=== PATIENT | male | born 1995 | race Caucasian/White ===

== ENCOUNTER 2022-04-01 15:39 | Outpatient (CLI) | payer MEDICARE, MEDICAID, SELFPAY | END 2022-04-01 15:40 | disposition home or self-care (01) | LOC: AMB 04-04 15:28 | PROVIDERS: PCP Physician Assistant Medical; Visit Provider Family Medicine | DX: Z71.51 Drug abuse counseling and surveillance of drug abuser (principal) | CPT/HCPCS: A0425; A0429 ==

== ENCOUNTER 2022-04-01 15:57 | Emergency (ER) | payer MEDICARE, MEDICAID, SELFPAY ==
[2022-04-01 16:03] VITALS: BP 159/106; PULSE 110; TEMP 36.6; O2SAT 99; BMI 36.2
--- NOTE | 2022-04-01 16:37 | ED_ITS ---
HPI - General Adult General Chief complaint: Psychiatric Problem/Disorder Stated complaint: Mental Health Time Seen by Provider: 04/01/22 16:18 Source: patient and other (Alla, Victoria via phone.) Mode of arrival: EMS Limitations: no limitations History of Present Illness HPI narrative: 27-year-old male with a history of guardian for prior substance abuse and mental health issues presents to the emergency department by local law enforcement. Guardilei called because she has concerns regarding his behavior. Patient has a longstanding history of drug and alcohol use. He has been refusing to attend medical appointments but he did attend a virtual psychiatry visit yesterday. It sounds as though they are starting on a treatment plan and the psychiatrist did not see any reason to medically hold the patient or exhibit any concerns regarding his safety at that time. Patient did ask the psychiatrist for Adderall as he is hoping to return to school which the provider declined at this time. Urine close family members have been reporting that he has shown some signs of erratic behavior. Mother has significant mental health issues as well. It sounds as though Harley was kicked out of his mother's apartment recently due to threatening a neighbor over money and drugs. The patient receives disability. He tells me that he does help support he and his mother by contributing to rent and living expenses. He also would like to look for a job. Alla is concerned that he showing self-destructive behavior by continuing to use kratom which is apparently an herbal supplement that he buys at a local tobacco shop. It is not illegal. His family confirms that he will take large amounts of these at a time and does drink alcohol. Patient states that he has not had any alcohol for a week. Family is worried that he is exhibiting self- destructive behavior though he is not threatening suicide, bodily harm to others or made threats to them in any way. Alla reports that she had set him up with an appointment for housing through the [facility] in the last few days which he refused to attend. Alla had a virtual visit with him today and states that he looked like he was on showered and on hygienic. Patient states the me that he has been eating and drinking normally, he socializes with family and friends. He states that he has a grown adult and is allowed to take herbal supplements if he sees fit. He does not think that he needs to be hospitalized. He denies any hallucinations, depression or anxiety. He states as a court appointment next month to readdress his guardianship as he no longer thinks that this is necessary for him. He does not make any threats to our staff. He did initially refuse to provide a drug or urine sample but when I explained that if this is truly negative as he assures me that it would be that this could help his case in the courts and contribute to his defense that he does not need to be medically held. Prior ED visits notable for drug and alcohol use. Long-term with history of ADHD and mental health issues. Admits to use of crater item and occasional alcohol, denies any other illicit drugs. ROS is notable for no medical complaints times 12 systems. Related Data Home Medications Medication Instructions Recorded Confirmed hydroxyzine HCl 25 mg tablet mg 04/01/22 hydroxyzine HCl 50 mg tablet mg 04/01/22 olanzapine 20 mg tablet mg 04/01/22 Allergies Allergy/AdvReac Type Severity Reaction Status Date / Time No Known Drug Allergies Allergy Verified 04/01/22 16:03 PFSH PFS Social History Smoking Status: Current every day smoker How often do you have a drink containing alcohol: monthly or less AUDIT-C Alcohol total score: 1 Non-prescribed substance use: other Non-prescribed substance use details: Kratom Exam Const: Vital Signs, click to edit/add: Vital Signs - 24 hr 04/01/22 16:03 Temperature 97.8 F Pulse Rate [Pulse Oximeter] 110 H Blood Pressure [Ri ght Upper Arm] 159/106 H Pulse Oximetry 99 Oxygen Delivery Me thod Room Air Common normals: no apparent distress and alert Orientation/consciousness: Yes awake Other: He is a little irritable but will answer my questions and follow commands and participate in exam without arguing. He is able to reason and state his case as to his lifestyle. No signs of delusions, hallucinations, aggressive or combative behavior. He is a bit disheveled but not out of the realm of typical of an emergency department patient that was not aware they were coming to the doctor. HENMT: Common normals: normocephalic and head/scalp atraumatic (No signs of recent injury) Head and scalp: normocephalic and atraumatic (No signs of recent injury) Face and sinus: normal facial exam Mouth: oral and palatal mucosa normal Throat: posterior oropharynx normal Eye: Common normals: PERRL, EOMs intact bilaterally and conjunctivae normal Conjunctiva: conjunctiva(e) normal Pupil: PERRL Neck & C-Spine: Common normals: full ROM and no lymphadenopathy Resp: Common normals: normal respiratory effort and clear to auscultation bilaterally Effort & inspection: able to speak in complete sentences Auscultation: clear to auscultation bilaterally Cardio: Common normals: regular rate, regular rhythm, S1 normal heart sound, S2 normal heart sound, no murmurs and peripheral pulses 2+ throughout Rate: regular rate Rhythm: regular rhythm Heart sounds: S1 normal and S2 normal Peripheral pulses: pulses 2+ throughout GI: Common normals: Normal to inspection, nondistended, normoactive bowel sounds present, soft to palpation, non-tender and no hepatosplenomegaly Palpation: soft and no hepatosplenomegaly Back & Pelvis: Common normals: thoracic and lumbar spine normal to inspection Extremity: Common normals: normal to inspection and normal capillary refill Other: No track santillan or signs of IV drug use. No bruising or signs of trauma. Neuro: Sensorium/orientation: awake and alert Speech: speech normal Motor exam: no tremor noted and no movement abnormalities noted Psych: Other: Mildly irritable but reasonable. Judgment insight are fair. Thought process is logical, able to reason with me. No psychosis, no threats. Appropriate behavior. Skin: Common normals: no rashes or lesions noted General skin exam: no rashes or lesions noted Course Vital Signs Vital signs: Initial Vital Signs Temperature 97.8 F 04/01/22 16:03 Temperature Source Temporal Artery Scan 04/01/22 16:03 Pulse Rate 110 H 04/01/22 16:03 Blood Pressure 159/106 H 04/01/22 16:03 Blood Pressure Mean 123 04/01/22 16:03 Blood Pressure Position Sitting 04/01/22 16:03 Pulse Oximetry 99 04/01/22 16:03 Oxygen Delivery Method 04/01/22 16:03 Vital Signs Temperature 97.8 F 04/01/22 16:03 Pulse Rate 110 H 04/01/22 16:03 Blood Pressure 159/106 H 04/01/22 16:03 Pulse Oximetry 99 04/01/22 16:03 Oxygen Delivery Method 04/01/22 16:03 Temperature 97.8 F 04/01/22 16:03 Pulse Rate 110 H 04/01/22 16:03 Blood Pressure 159/106 H 04/01/22 16:03 Pulse Oximetry 99 04/01/22 16:03 Oxygen Delivery Method 04/01/22 16:03 Medical Decision Making MDM Narrative Medical decision making narrative: Patient initially declined labs but was agreeable after discussion. Negative alcohol level noted. Urine drug screen notably positive for amphetamines but no other substances. Remainder of labs show that he is not dehydrated, rather he is well hydrated with normal electrolytes, no anemia or signs of acute illness. However he is caring for his body, it is within the realm of normal. I will discuss the herbal supplements and drug use with him but I do not have any criteria to hold this patient in the hospital and he will be discharged. I let his guardian know that that was the expected outcome in our conversation and I let her know that we would only call her back if this were not the plan that we would proceed with. There is no need to call her back and he will be released. I relayed these findings to patient and he was calm and cooperative and respectful. We have not had any issues with his interactions with our staff today. Lab Data Labs: Lab Results 04/01/22 04/01/22 04/01/22 Range/Units 16:45 16:45 16:48 WBC 9.54 (4.50-11.00) K/uL RBC 5.37 (4.30-5.90) m/uL Hgb 16.0 (13.5-17.5) gm/dL Hct 47.2 (37.0-53.0) % MCV 88 (80-100) fL MCH 30 (26-34) pg MCHC 34 (32-36) gm/dL RDW Coeff of Lino 13.3 (11.5-15.5) % Plt Count 345 (140-440) K/uL Neut % (Auto) 63.8 (42.0-72.0) % Lymph % (Auto) 28.8 (20-44) % [place] % (Auto) 5.8 (0.0-11.0) % Eos % (Auto) 1.3 (0.0-7.0) % Baso % (Auto) 0.2 (0.0-3.0) % Neut # (Auto) 6.09 (1.7-7.0) K/uL Lymph # (Auto) 2.75 (0.90-2.90) K/uL [place] # (Auto) 0.60 (0.00-0.90) K/UL Eos # (Auto) 0.12 (0.00-0.50) K/uL Baso # (Auto) 0.02 (0.00-0.30) K/uL Sodium 140 (135-149) mmol/L Potassium 4.5 (3.6-5.1) mmol/L Chloride 101 (96-114) mmol/L Carbon Dioxide 29 (20-32) mmol/L BUN 10 (5-24) mg/dL Creatinine 0.7 (0.5-1.5) mg/dL Estimated Creat Clear 161.32 Estimated GFR 131 ml/min Glucose 104 (60-115) mg/dL Calcium 9.8 (8.4-10.6) mg/dL Salicylates < 1.0 L (1.0-10) mg/dL Urine Opiates Screen Negative (Negative) Ur Oxycodone Screen Negative (Negative) Urine Methadone Screen Negative (Negative) Ur Propoxyphene Screen Negative (Negative) Ur Barbiturates Screen Negative (Negative) U Tricyclic Antidepress Negative (Negative) Ur Phencyclidine Scrn Negative (Negative) Ur Amphetamines Screen POSITIVE A* (Negative) U Methamphetamines Scrn POSITIVE A* (Negative) U Benzodiazepines Scrn Negative (Negative) Urine Cocaine Screen Negative (Negative) U Marijuana (THC) Screen Negative (Negative) Ur Drug Screen Comment See Note Ethyl Alcohol < 0.01 L (0.01-0.03) % Discharge Plan Discharge Clinical Impression: Substance use Patient Disposition: Home, Self-Care Condition: Stable Instructions: Polysubstance Abuse (ED) Additional Instructions: As we discussed, your drug screen is positive for methamphetamines. This could have come from herbal supplements but I suspect it was from what ever you got from your friend. I do not recommend that you continue to use any type of herbal or prescribed medications that are not specifically prescribed to you. Your alcohol level was negative. Your labs clearly show that you are not dehydrated, your electrolytes are normal. You have been eating and taking care of yourself appropriately. There are no signs of infection or other abnormality. You were cooperative with our requests and exam today. We do not sense any signs of intent to self-harm or directly harm others. I have conveyed this message to your guardian. I have no legal reason to hold you in the emergency room today. Keeping appointments for housing, medical appointments and appointments with her guardian and or manager social responsibility dramatically improves your chance at [place]. Failure to keep these appointments gives your guardian more evidence that you still require guardianship to the [place] judge. Consider this for future appointments. Activity Level: No Restrictions Discharge Diet: Regular Prescriptions: No Action hydroxyzine HCl 50 mg tablet Label Comments: Take 1 tablet twice a day hydroxyzine HCl 25 mg tablet Label Comments: TAKE 2 TABLET BY MOUTH ONCE DAILY NEEDED FOR ANXIETY olanzapine 20 mg tablet Label Comments: Take 1/2 tablet by mouth twice a day Follow Up/Referrals: Shante Fry PA-C [Primary Care Provider] - Stand Alone Forms: [facility] Info Instructions
[2022-04-01 16:57] LABS: Basophils Absolute Auto 0.02 K/uL (0.00-0.30); Basophils Percent Auto 0.2 % (0.0-3.0); Eosinophils Absolute Auto 0.12 K/uL (0.00-0.50); Eosinophils Percent Auto 1.3 % (0.0-7.0); Hematocrit 47.2 % (37.0-53.0); Immature Granulocytes Abs Auto 0.01 K/uL (0.00-0.30); Immature Granulocytes Pct Auto 0.1 %; Lymphocytes Absolute Auto 2.75 K/uL (0.90-2.90); Lymphocytes Percent Auto 28.8 % (20-44); Mean Corpuscular HGB Conc 34 gm/dL (32-36); Mean Corpuscular Hemoglobin 30 pg (26-34); Mean Corpuscular Volume 88 fL (80-100); Monocytes Percent Auto 5.8 % (0.0-11.0); Neutrophils Absolute Auto 6.09 K/uL (1.7-7.0); Neutrophils Percent Auto 63.8 % (42.0-72.0); Platelet Count* 345 K/uL (140-440); RDW Coefficient of Variation % 13.3 % (11.5-15.5); Red Blood Count 5.37 m/uL (4.30-5.90); White Blood Count* 9.54 K/uL (4.50-11.00)
[2022-04-01 17:03] LABS: Barbiturate Screen Urine Negative (Negative); Benzodiazepines Screen Urine Negative (Negative); Cannabinoid Screen Urine Negative (Negative); Cocaine Screen Urine Negative (Negative); Methadone Screen Urine Negative (Negative); Opiate Screen Urine Negative (Negative); Oxycodone Screen Urine Negative (Negative); Phencyclidine Screen Urine Negative (Negative); Tricyclic Antidepressant Urine Negative (Negative)
[2022-04-01 17:08] LABS: Chloride* 101 mmol/L (96-114); Potassium* 4.5 mmol/L (3.6-5.1); Sodium* 140 mmol/L (135-149)
[2022-04-01 17:11] LABS: Blood Urea Nitrogen* 10 mg/dL (5-24); Carbon Dioxide* 29 mmol/L (20-32); Creatinine* 0.7 mg/dL (0.5-1.5); Est. Creatinine Clearance* 161.32; Estimated Glomerular Filt Rate 131 ml/min
[2022-04-01 17:12] LABS: Methamphetamines Screen Urine POSITIVE (Negative)
[2022-04-01 17:12] LABS: Calcium* 9.8 mg/dL (8.4-10.6); Glucose* 104 mg/dL (60-115)
[2022-04-01 17:13] LABS: Amphetamine Screen Urine POSITIVE (Negative)
[2022-04-01 17:17] LABS: Ethanol* < 0.01 % (0.01-0.03); Salicylate* < 1.0 mg/dL (1.0-10)
[2022-04-01 17:18] LABS: Slide Review Reflex No
[2022-04-01 17:42] VITALS: BP 159/101; PULSE 95; O2SAT 98
[2022-04-01 18:12] LABS: Acetaminophen* < 10.0 ug/mL (10.0-30.0)
== END 2022-04-01 17:49 | disposition home or self-care (01) ==
PROVIDERS: Emergency Provider Family Medicine; PCP Physician Assistant Medical
DX: F15.90 Other stimulant use, unspecified, uncomplicated (principal)
CPT/HCPCS: 36415; 80048; 80143; 80179; 80306; 82077; 85025; 99283